=== PATIENT | male | born 1985 | race Caucasian/White ===

== ENCOUNTER 2017-01-12 14:15 | Inpatient (IN) | payer OTHER ==
[~2017-01-12] VITALS: Ht 185.4 cm; Wt 165.1 kg
[2017-01-12 14:36] VITALS: BP 104/62
[2017-01-12 14:56] LABS: HEMATOCRIT 43.9 % (42.0-52.0); HEMOGLOBIN 14.9 g/dl (14.0-18.0); MEAN CELL VOLUME 87.8 fl (80.0-94.0); MEAN CORPUSCULAR HGB 29.8 pg (27.0-31.0); MEAN CORPUSCULAR HGB CONC 33.9 g/dl (33.0-37.0); MEAN PLATELET VOLUME 8.7 fl (9.6-12.3); PLATELET COUNT AUTOMATED 274 10*3/uL (130-400); WHITE BLOOD COUNT 23.7 10*3/uL (4.8-10.8)
[2017-01-12 15:15] LABS: ALBUMIN 3.9 gm/dl (3.1-4.5); ALKALINE PHOSPHATASE 74 U/L (45-117); BUN 14 mg/dl (7-24); CHLORIDE 101 mmol/L (98-107); CREATININE 1.43 mg/dL (0.70-1.30); POTASSIUM 3.6 mmol/L (3.5-5.1); SGOT/AST 11 IU/L (3-35); SGPT/ALT 23 U/L (12-78); SODIUM 137 mmol/L (136-145); TOTAL PROTEIN 7.7 gm/dL (6.4-8.2)
[2017-01-12 15:17] LABS: TOTAL CELLS COUNTED 100 #CELLS; TROPONIN I < 0.015 ng/ml (<0.045)
[2017-01-12 15:18] LABS: PLATELET SUFFICIENCY NORMAL (NORMAL)
[2017-01-12 16:23] VITALS: BP 103/44
[2017-01-12 17:31] VITALS: BP 140/53
[2017-01-12 17:40] VITALS: BP 121/55
--- NOTE | 2017-01-12 17:40 | NUR ---
A 31, admitted to [facility]U, under the services of STEPHANIE Christine DO with a diagnosis of CELLULITIS AND SEVERE SEPSIS. Chief complaint is SWELLING IN LEFT LEG AND REDNESS. Patient arrived via stretcher from ER. Monitor applied. Initial assessment completed. Vital signs taken and recorded. STEPHANIE CHRISTINE DO notified of admission to the unit. Orders received. See assessment for past medical history, medications and allergies. Patient and/or family oriented to unit. [facility] visitation policy reviewed. Clothing/patient valuable form completed. SEMAJ CURRY
[2017-01-12 20:00] VITALS: BP 113/49
--- NOTE | 2017-01-12 20:00 | NUR ---
PT MEDICATED WITH NORCO 1 TAB PO FOR C/O LEFT LOWER LEG PAIN WHERE CELLULITIS IS.
--- NOTE | 2017-01-12 21:25 | NUR ---
PT RESTING EASILY IN BED STATED NORCO WAS EFFECTIIVE IN EASING HIS LEG PAIN.
[2017-01-13] VITALS: BP 127/67
[2017-01-13 04:00] VITALS: BP 147/70
[2017-01-13 04:56] LABS: BASO % 0.2 % (0.0-1.0); LYMPH # 0.7 10*3/uL (1.3-4.4); LYMPH % 4.2 % (27.0-41.0); MEAN CELL VOLUME 88.6 fl (80.0-94.0); MEAN CORPUSCULAR HGB 30.4 pg (27.0-31.0); MEAN CORPUSCULAR HGB CONC 34.3 g/dl (33.0-37.0); MEAN PLATELET VOLUME 8.9 fl (9.6-12.3); MONO # 0.8 10*3/uL (0.1-1.0); MONO % 4.9 % (3.0-9.0); NEUT # 13.8 10*3/uL (2.3-7.9); NEUT % 89.9 % (47.0-73.0); PLATELET COUNT AUTOMATED 218 10*3/uL (130-400); RED BLOOD COUNT 4.05 10*6/uL (4.50-5.90); RED CELL DISTRI WIDTH 13.4 % (0-14.5); WHITE BLOOD COUNT 15.4 10*3/uL (4.8-10.8)
[2017-01-13 04:57] LABS: HEMATOCRIT 35.9 % (42.0-52.0); HEMOGLOBIN 12.3 g/dl (14.0-18.0)
[2017-01-13 05:01] LABS: ACT PARTIAL THROMBO TIME 30.7 SECONDS (20.8-31.5); INTERNATIONAL NORM RATIO 1.3 (2.0-3.5)
[2017-01-13 05:09] LABS: ALBUMIN 2.8 gm/dl (3.1-4.5); ALKALINE PHOSPHATASE 55 U/L (45-117); BUN 16 mg/dl (7-24); CHLORIDE 107 mmol/L (98-107); CHOLESTEROL 107 mg/dL (<200); CREATININE 1.41 mg/dL (0.70-1.30); HDL CHOLESTEROL 41 mg/dl (40-60); LDL CHOLESTEROL 39 mg/dL (9-159); MAGNESIUM 1.3 mg/dL (1.5-2.1); PHOSPHOROUS 2.8 mg/dL (2.5-4.9); POTASSIUM 3.2 mmol/L (3.5-5.1); SGOT/AST 13 IU/L (3-35); SGPT/ALT 18 U/L (12-78); SODIUM 141 mmol/L (136-145); TRIGLYCERIDES 137 mg/dl (<150); VLDL CHOLESTEROL 27 mg/dL (6-40)
[2017-01-13 05:15] LABS: THYROID STIM HORMONE (HS) 0.563 uIU/ml (0.358-4.75)
[2017-01-13 07:01] LABS: VITAMIN D, 25-HYDROXY 16.4 ng/mL (30-100)
[2017-01-13 08:00] VITALS: BP 150/76
[2017-01-13 12:00] VITALS: BP 126/79
[2017-01-13 16:00] VITALS: BP 134/76
--- NOTE | 2017-01-13 16:33 | NUR ---
REPORT GIVEN TO FATOU ON 5E AND PT TRANSFERED TO 519 VIA WHEELCHAIR.
--- NOTE | 2017-01-13 16:35 | NUR ---
PATIENT ARRIVED TO UNIT.
--- NOTE | 2017-01-13 18:17 | NUR ---
PRN MORPHINE GIVEN FOR THROBBING PAIN IN HIS LEFT LEG RATED 8/10. PATIENT STATES IV MORPHINE TOOK AFFECT IMMEDIATELY AND NOW RATES PAIN AT 3/10. WILL CONTINUE TO MONITOR.
[2017-01-13 20:01] VITALS: BP 130/75
--- NOTE | 2017-01-13 22:42 | NUR ---
PATIENT RESTING IN BED CALL LIGHT IN REACH NO CO AT THIS TIME SEE SHIFT ASSESSMENT
[2017-01-14] VITALS: BP 138/75
[2017-01-14 03:46] LABS: BASO % 0.3 % (0.0-1.0); EOS # 0.4 10*3/uL (0.0-0.4); HEMATOCRIT 34.6 % (42.0-52.0); HEMOGLOBIN 11.5 g/dl (14.0-18.0); LYMPH # 1.1 10*3/uL (1.3-4.4); LYMPH % 16.1 % (27.0-41.0); MEAN CELL VOLUME 89.2 fl (80.0-94.0); MEAN CORPUSCULAR HGB 29.6 pg (27.0-31.0); MEAN CORPUSCULAR HGB CONC 33.2 g/dl (33.0-37.0); MEAN PLATELET VOLUME 8.7 fl (9.6-12.3); MONO # 0.7 10*3/uL (0.1-1.0); MONO % 9.6 % (3.0-9.0); NEUT # 4.8 10*3/uL (2.3-7.9); NEUT % 68.7 % (47.0-73.0); PLATELET COUNT AUTOMATED 176 10*3/uL (130-400); RED BLOOD COUNT 3.88 10*6/uL (4.50-5.90); RED CELL DISTRI WIDTH 13.4 % (0-14.5)
[2017-01-14 03:59] LABS: BUN 12 mg/dl (7-24); CHLORIDE 108 mmol/L (98-107); CREATININE 1.41 mg/dL (0.70-1.30); POTASSIUM 3.5 mmol/L (3.5-5.1); SODIUM 141 mmol/L (136-145)
[2017-01-14 08:00] VITALS: BP 152/77
[2017-01-14 12:00] VITALS: BP 144/80
[2017-01-14 16:00] VITALS: BP 147/81
[2017-01-14 20:00] VITALS: BP 151/77
[2017-01-15] VITALS: BP 135/73
--- NOTE | 2017-01-15 01:57 | NUR ---
PATIENT RESTING IN BED WITH EYES CLOSED AT THIS TIME. AROUSES TO VERBAL STIMULI. NO SIGNS OR SYMPTOMS OF DISTRESS NOTED. MEDICATED WITH NORCO FOR COMPLAINTS OF LEG PAIN AND RESTORIL FOR COMPLAINTS OF INSOMNIA AT 2231 WITH EFFECTIVE RESULTS NOTED. WILL CONTINUE TO MONITOR. CALL LIGHT IN REACH.
[2017-01-15 06:36] LABS: BUN 8 mg/dl (7-24); CHLORIDE 105 mmol/L (98-107); CREATININE 1.24 mg/dL (0.70-1.30); POTASSIUM 3.6 mmol/L (3.5-5.1); SODIUM 140 mmol/L (136-145)
[2017-01-15 06:38] LABS: BASO % 0.3 % (0.0-1.0); EOS # 0.5 10*3/uL (0.0-0.4); EOS % 7.9 % (1.0-4.0); HEMATOCRIT 34.8 % (42.0-52.0); HEMOGLOBIN 11.6 g/dl (14.0-18.0); LYMPH # 1.4 10*3/uL (1.3-4.4); MEAN CELL VOLUME 89.2 fl (80.0-94.0); MEAN CORPUSCULAR HGB 29.7 pg (27.0-31.0); MEAN CORPUSCULAR HGB CONC 33.3 g/dl (33.0-37.0); MEAN PLATELET VOLUME 9.2 fl (9.6-12.3); MONO # 0.5 10*3/uL (0.1-1.0); MONO % 8.4 % (3.0-9.0); NEUT # 3.4 10*3/uL (2.3-7.9); NEUT % 59.1 % (47.0-73.0); PLATELET COUNT AUTOMATED 208 10*3/uL (130-400); RED CELL DISTRI WIDTH 13.2 % (0-14.5); WHITE BLOOD COUNT 5.8 10*3/uL (4.8-10.8)
[2017-01-15 08:00] VITALS: BP 144/71
--- NOTE | 2017-01-15 08:51 | NUR ---
PATIENT IS RESTING COMFORTABLY IN BED, PT IS AMBULATORY, A&O X3, AND PERRLA PRESENT. PATIENT DENIES ANY PAIN OR DISCOMFORT THIS MORNING. PATIENT DENIES SOB. PATIENT HAS NO FURTHER COMPLAINTS AT THIS TIME. SEE SHIFT ASSESSMENT. PATIENT REORIENTED TO ROOM AND CALL LIGHT IS WITHIN REACH.
--- NOTE | 2017-01-15 09:00 | NUR ---
Sales & Service Associate in to talk to patient. Patient states lives at home with . There are few steps in the home. Physician: out of state Pharmacy: out of state Home health services: none Patient's level of ADLs: INDEPENDENT Patient has working utilities: all working DME: none Follow-up physician's appointment after d/c: will be made by hospitalist nurse director upon discharge Does patient want to access PORTAL?: no Discharge plan discussed with patient, patient states [place] lives [place] state and [place] on a [employer], [place], he is independent in adls and ambulation, patient stated that he will need to notify his company when he is being discharged, they will have him a plane ticket to fly back to him home, informed hospitalist nurse director of this, patient denies any home needs at this time. KEI PEREZ
[2017-01-15] MEDS ORDERED: DOXYCYCLINE100 M3 PO (10:43)
[2017-01-15 11:35] VITALS: BP 136/78
--- NOTE | 2017-01-15 12:24 | NUR ---
Nurse director copied records to be faxed to the patients PCP Dr Sunil Geronimo at [phone]. Consent to copy records signed by the patient. Patient notified his employer and they have made travel arrangements for him to get back home. Awaiting a cab to arrive as arranged.
--- NOTE | 2017-01-15 13:25 | NUR ---
Discharge instructions reviewed with patient/family. Patient receptive and verbalizes understanding. Follow-up care arranged with pcp in one week. Written instructions given to patient. Patient escorted off of floor via wheelchair. HAILY MAC
== END 2017-01-15 13:25 | disposition home or self-care (01) | DRG 871 ==
LOC: ED 14:15 → 4E 16:44 → EDHOLD 16:44 → ICCU 16:44 → 4E 16:55 → ICCU 17:16 → 5E 01-13 16:49
PROVIDERS: Family Medicine; Internal Medicine Nephrology; Nurse Practitioner Family; ADMIT Internal Medicine
DX: A41.9 Sepsis, unspecified organism (principal); N17.0 Acute kidney failure with tubular necrosis; E87.2 Acidosis; L03.116 Cellulitis of left lower limb; E44.0 Moderate protein-calorie malnutrition; Z68.42 Body mass index [BMI] 45.0-49.9, adult; R65.20 Severe sepsis without septic shock; R50.9 Fever, unspecified; R73.9 Hyperglycemia, unspecified; E66.01 Morbid (severe) obesity due to excess calories; D64.9 Anemia, unspecified; E87.6 Hypokalemia; E83.42 Hypomagnesemia; E53.8 Deficiency of other specified B group vitamins; E55.9 Vitamin D deficiency, unspecified; Z82.49 Family history of ischemic heart disease and other diseases of the circulatory system; Z80.0 Family history of malignant neoplasm of digestive organs; Z72.0 Tobacco use; Z71.6 Tobacco abuse counseling